=== PATIENT | female | born 1995 | race American Indian/Alaskan Native ===

== ENCOUNTER 2018-04-04 21:11 | Emergency (ER) | payer MEDICAID ==
[2018-04-04 21:11] VITALS: BMI 19.4
[2018-04-04 21:27] VITALS: RESP 18; TEMP 98.3
[2018-04-04] MEDS ORDERED: Albuterol 0.083% Inhal Sol (2.5 mg/3 mL) UD INH STA (22:18)
[2018-04-04] MEDS ORDERED: Albuterol 0.083% Inhal Sol (2.5 mg/3 mL) UD ONE (22:28)
[2018-04-04 23:17] VITALS: O2SAT 97
--- NOTE | 2018-04-04 23:30 | ED PDOC ---
HPI: Chest Pain Time Seen by Provider: 04/04/18 21:52 Chief Complaint (Nursing): Cough, Cold, Congestion Chief Complaint (Provider): Cough, central chest pain with cough History Per: Patient History/Exam Limitations: no limitations Onset/Duration Of Symptoms: Days Current Symptoms Are (Timing): Still Present Additional Complaint(s): 23 yo female with no medical problems presents with cough x 1 week with green phelgm. PT states today she feels tightness and chest pain, central with cough. No CP, no recent travel, no clotting/blood disordered. Past Medical History Reviewed: Historical Data, Nursing Documentation, Vital Signs Vital Signs: Last Vital Signs Temp 98.3 F 04/04/18 21:19 Pulse 88 04/04/18 21:19 Resp 18 04/04/18 21:19 BP 115/75 04/04/18 21:19 Pulse Ox 97 04/04/18 23:32 - Medical History PMH: No Chronic Diseases - Surgical History Surgical History: No Surg Hx - Family History Family History: States: No Known Family Hx - Living Arrangements Living Arrangements: With Family - Home Medications Home Medications: Ambulatory Orders Medication Instructions Recorded Vit No.128/Iron/FA 1 each PO DAILY 01/07/16 [ Vitamin] Cephalexin [Keflex] 500 mg PO TID #15 capsule 12/21/16 Ibuprofen [Motrin] 1 tab PO Q8 PRN #21 tab 12/21/16 Albuterol HFA [Ventolin HFA 90 1 puff IH BID PRN #1 unit 04/04/18 mcg/actuation (8 g)] Azithromycin [Zithromax] 250 mg PO DAILY #6 tab 04/04/18 - Allergies Allergies/Adverse Reactions: Allergies Allergy/AdvReac Type Severity Reaction Status Date / Time No Known Allergies Allergy Verified 01/07/16 00:10 Review of Systems ROS Statement: Except As Marked, All Systems Reviewed And Found Negative Constitutional: Positive for: Malaise. Negative for: Fever, Chills Cardiovascular: Positive for: Chest Pain Respiratory: Positive for: Cough, Shortness of Breath Physical Exam - Reviewed Nursing Documentation Reviewed: Yes Vital Signs Reviewed: Yes - Physical Exam Appears: Positive for: Well, Non-toxic, No Acute Distress Head Exam: Positive for: ATRAUMATIC, NORMAL INSPECTION, NORMOCEPHALIC Skin: Positive for: Normal Color, Warm, DRY Eye Exam: Positive for: Normal appearance ENT: Positive for: Normal ENT Inspection Neck: Positive for: Normal, Painless ROM Cardiovascular/Chest: Positive for: Regular Rate, Rhythm Respiratory: Positive for: Normal Breath Sounds. Negative for: Accessory Muscle Use, Respiratory Distress Back: Positive for: Normal Inspection Extremity: Positive for: Normal ROM Neurologic/Psych: Positive for: Alert, Oriented - ECG O2 Sat by Pulse Oximetry: 97 Medical Decision Making Medical Decision Making: Pt reports feeling better on re-evaluation. Disposition - Clinical Impression Clinical Impression: Cough - Patient ED Disposition Is Patient to be Admitted: No Counseled Patient/Family Regarding: Diagnosis, Need For Followup, Rx Given - Disposition Disposition: Routine/Home Disposition Time: 23:31 Condition: STABLE Prescriptions: Albuterol HFA [Ventolin HFA 90 mcg/actuation (8 g)] 1 puff IH BID PRN #1 unit PRN Reason: shortness of breath Azithromycin [Zithromax] 250 mg PO DAILY #6 tab Instructions: Cough in Adults Forms: [facility] (Bulgarian), [facility] ED School/Work Excuse
[2018-04-04 23:36] VITALS: BP 104/71; PULSE 86
--- NOTE | 2018-04-05 07:13 | CARD ---
APPROVED REPORT EKG Measurement Heart [id number] <Conclusion> Normal sinus rhythm Normal ECG
--- NOTE | 2018-04-05 09:02 | RAD ---
HISTORY: cough, chest pain COMPARISON: Chest radiograph dated 09/22/2011 TECHNIQUE: Chest PA and lateral FINDINGS: LUNGS: No active pulmonary disease. PLEURA: No significant pleural effusion identified. No pneumothorax apparent. CARDIOVASCULAR: Normal. OSSEOUS STRUCTURES: No significant abnormalities. VISUALIZED UPPER ABDOMEN: Normal. OTHER FINDINGS: None. IMPRESSION: No active disease.
== END 2018-04-04 23:37 | disposition home or self-care (01) ==
LOC: H.ER 21:11
DX: R05 Cough (principal)

== ENCOUNTER 2018-06-18 23:30 | Emergency (ER) | payer MEDICAID ==
[2018-06-18 23:30] VITALS: BMI 19.4
[2018-06-18 23:43] VITALS: RESP 16; O2SAT 100
--- NOTE | 2018-06-19 00:23 | ED PDOC ---
HPI: Chest Pain Time Seen by Provider: 06/18/18 23:42 Chief Complaint (Nursing): Chest Pain Chief Complaint (Provider): chest pain History Per: Patient History/Exam Limitations: no limitations Onset/Duration Of Symptoms: Mins (30) Current Symptoms Are (Timing): Still Present Exacerbating Factors: Deep Breathing Additional Complaint(s): 23 y/o female presents for evaluation of midsternal chest pain x 30 mins. Patient states she was watching tv when symptoms began, which are worsened by touch,deep breaths. Denies fever, cough, congestion, shortness of breath, palpitations, leg pain/swelling, recent travel, OCP use, tobacco use. Past Medical History Reviewed: Historical Data, Nursing Documentation, Vital Signs Vital Signs: Last Vital Signs Temp 98.2 F 06/18/18 23:41 Pulse 90 06/18/18 23:41 Resp 16 06/18/18 23:41 BP 116/76 06/18/18 23:41 Pulse Ox 100 06/19/18 02:23 - Medical History PMH: No Chronic Diseases - Surgical History Surgical History: No Surg Hx - Family History Family History: States: No Known Family Hx - Living Arrangements Living Arrangements: With Family - Home Medications Home Medications: Ambulatory Orders Medication Instructions Recorded Vit No.128/Iron/FA 1 each PO DAILY 01/07/16 [ Vitamin] Cephalexin [Keflex] 500 mg PO TID #15 capsule 12/21/16 Ibuprofen [Motrin] 1 tab PO Q8 PRN #21 tab 12/21/16 Albuterol HFA [Ventolin HFA 90 1 puff IH BID PRN #1 unit 04/04/18 mcg/actuation (8 g)] Azithromycin [Zithromax] 250 mg PO DAILY #6 tab 04/04/18 - Allergies Allergies/Adverse Reactions: Allergies Allergy/AdvReac Type Severity Reaction Status Date / Time No Known Allergies Allergy Verified 01/07/16 00:10 Review of Systems ROS Statement: Except As Marked, All Systems Reviewed And Found Negative Cardiovascular: Positive for: Chest Pain Physical Exam - Reviewed Nursing Documentation Reviewed: Yes Vital Signs Reviewed: Yes - Physical Exam Appears: Positive for: Well, Non-toxic, No Acute Distress Head Exam: Positive for: ATRAUMATIC, NORMAL INSPECTION, NORMOCEPHALIC Skin: Positive for: Normal Color Eye Exam: Positive for: Normal appearance ENT: Positive for: Normal ENT Inspection Cardiovascular/Chest: Positive for: Regular Rate, Rhythm. Negative for: Chest Non Tender (tender to palpate upper b/l costochondral joints midsternal area; no ecchymosis, crepitus, edema noted) Respiratory: Positive for: Normal Breath Sounds Gastrointestinal/Abdominal: Positive for: Normal Exam Back: Positive for: Normal Inspection Extremity: Positive for: Normal ROM. Negative for: Calf Tenderness Neurologic/Psych: Positive for: Alert, Oriented (x3) - Laboratory Results Result Diagrams: 06/19/18 00:50 06/19/18 00:50 - ECG ECG: Positive for: Viewed By Me (reviewed by ED attending) ECG Rhythm: Positive for: Sinus Rhythm O2 Sat by Pulse Oximetry: 100 - Radiology X-Ray: Viewed By Me X-Ray Interpretation: No Acute Disease - Progress ED Course And Treament: labs, ekg, chest xray, IV toradol Patient with + test; states her LMP was 05/16/18. States she took a home test 2 weeks ago and it was negative IV toradol changed to PO tylenol 2:35 Patient states pain improved; states she is now able to touch her center of chest without pain. Patient educated on findings, discharged with instructions to follow up PMD 2-3 days Advised Tylenol PRN pain Advised follow up flight attendant/inflight supervisor for care Strict return precautions given, including worsening chest pain, shortness of breath, palpitations, or other concerning symptoms. Disposition - Clinical Impression Clinical Impression: Costochondral chest pain, - Patient ED Disposition Is Patient to be Admitted: No Counseled Patient/Family Regarding: Studies Performed, Diagnosis, Need For Followup - Disposition Disposition: Routine/Home Disposition Time: 02:37 Condition: IMPROVED Instructions: Costochondritis, - The First Month Forms: [employer] (Albanian)
[2018-06-19 01:05] LABS: BASO % 0.5 % (0.0-2.0); EOS % 0.5 % (0.0-4.0); HEMOGLOBIN 12.5 g/dL (12.0-16.0); LYMPH # 1.7 K/uL (1.0-4.3); LYMPH % 34.7 % (20.0-40.0); MEAN CELL VOLUME 90.9 fl (81.0-99.0); MEAN CORPUSCULAR HEMOGLOBIN 30.9 pg (27.0-31.0); MEAN PLATELET VOLUME 9.7 fl (7.2-11.7); MONO # 0.5 K/uL (0.0-0.8); NEUT # 2.6 K/uL (1.8-7.0); NEUT % 53.3 % (50.0-75.0); NRBC % 0.1 % (0.0-0.0); RBC 4.04 Mil/uL (3.80-5.20); RED CELL DISTRIBUTION WIDTH 12.8 % (11.5-14.5); WHITE BLOOD COUNT 4.9 K/uL (4.8-10.8)
[2018-06-19 01:28] LABS: ALB/GLOB RATIO 1.5 (1.0-2.1); ALBUMIN 4.1 g/dL (3.5-5.0); ALT/SGPT 17 U/L (9-52); AST/SGOT 18 U/L (14-36); BLOOD UREA NITROGEN 8 mg/dl (7-17); GFR AFRICAN-AMERICAN > 60; GFR NON-AFRICAN AMERICAN > 60
[2018-06-19 02:56] VITALS: BP 111/69; PULSE 87; TEMP 98.3
--- NOTE | 2018-06-19 07:13 | CARD ---
APPROVED REPORT Date of service: 06/18/2018 <Conclusion> Normal sinus rhythm Normal ECG
--- NOTE | 2018-06-19 08:15 | RAD ---
Date of service: 06/19/2018 HISTORY: chest pain COMPARISON: 04/04/2018 TECHNIQUE: Chest PA and lateral FINDINGS: LUNGS: No active pulmonary disease. PLEURA: No significant pleural effusion identified. No pneumothorax apparent. CARDIOVASCULAR: Normal. OSSEOUS STRUCTURES: No significant abnormalities. VISUALIZED UPPER ABDOMEN: Normal. OTHER FINDINGS: None. IMPRESSION: No active disease. No change perceived.
== END 2018-06-19 02:55 | disposition home or self-care (01) ==
LOC: H.ER 23:30
DX: R07.1 Chest pain on breathing (principal); Z33.1 Pregnant state, incidental

== ENCOUNTER 2018-06-30 23:01 | Emergency (ER) | payer MEDICAID ==
[2018-06-30 23:01] VITALS: BMI 19.4
[2018-06-30 23:10] VITALS: O2SAT 100
--- NOTE | 2018-07-01 00:09 | ED PDOC ---
HPI: Abdomen Time Seen by Provider: 06/30/18 23:15 Chief Complaint (Nursing): Abdominal Pain Chief Complaint (Provider): Abdominal pain History Per: Patient History/Exam Limitations: no limitations Onset/Duration Of Symptoms: Days (2) Current Symptoms Are (Timing): Still Present Location Of Pain/Discomfort: RLQ, LLQ, Suprapubic Quality Of Discomfort: Cramping Additional History Per: Patient Additional Complaint(s): 23yo female, comes to ER for evaluation of lower abdominal pain x 2 days, described as a cramping sesnation. She states prior to arrival, when sitting on the toilet to urinate, she noted blood. She denies any vaginal bleeding after that instance. Patient states she is but has no care, and is unsure of the duration of her ; she reports she has an OBGYN appointment on 07/11. Otherwise, deneis any fever, chills, urinary symptoms, nausea, vomiting, or diarrhea. She also denies any shortness of breath or chest pain. Patient did not take any medications prior to arrival. PMD: Dr. Millard Last Menstral Period: 05/15/18 : 2 Para: 1 (early @ 34 weeks) Past Medical History Reviewed: Historical Data, Nursing Documentation, Vital Signs Vital Signs: Last Vital Signs Temp 98.7 F 06/30/18 23:07 Pulse 90 06/30/18 23:07 Resp 16 06/30/18 23:07 BP 122/78 06/30/18 23:07 Pulse Ox 100 07/01/18 02:51 - Medical History PMH: No Chronic Diseases - Surgical History Surgical History: No Surg Hx - Family History Family History: States: No Known Family Hx - Social History Current smoker - smoking cessation education provided: No Alcohol: None Drugs: Denies - Home Medications Home Medications: Ambulatory Orders Medication Instructions Recorded Vit No.128/Iron/FA 1 each PO DAILY 01/07/16 [ Vitamin] Cephalexin [Keflex] 500 mg PO TID #15 capsule 12/21/16 Ibuprofen [Motrin] 1 tab PO Q8 PRN #21 tab 12/21/16 Albuterol HFA [Ventolin HFA 90 1 puff IH BID PRN #1 unit 04/04/18 mcg/actuation (8 g)] Azithromycin [Zithromax] 250 mg PO DAILY #6 tab 04/04/18 Acetaminophen [Acetaminophen 8 650 mg PO Q8 PRN #21 tablet.er 07/01/18 Hour] - Allergies Allergies/Adverse Reactions: Allergies Allergy/AdvReac Type Severity Reaction Status Date / Time No Known Allergies Allergy Verified 01/07/16 00:10 Review of Systems ROS Statement: Except As Marked, All Systems Reviewed And Found Negative Cardiovascular: Negative for: Chest Pain Respiratory: Negative for: Shortness of Breath Gastrointestinal: Positive for: Abdominal Pain. Negative for: Nausea, Vomiting , Diarrhea Genitourinary Female: Positive for: Vaginal Bleeding. Negative for: Dysuria, Hematuria Physical Exam - Reviewed Nursing Documentation Reviewed: Yes Vital Signs Reviewed: Yes - Physical Exam Comments: GENERAL APPEARANCE: Patient is awake, alert, oriented x 3, in mild painful distress. SKIN: Warm, dry; (-) cyanosis. EYES: (-) conjunctival pallor, (-) scleral icterus. ENMT: Mucous membranes moist. NECK: (-) tenderness, (-) stiffness, (-) lymphadenopathy. CHEST AND RESPIRATORY: (-) rales, (-) rhonchi, (-) wheezes; breath sounds equal bilaterally. HEART AND CARDIOVASCULAR: (-) irregularity; (-) murmur, (-) gallop. ABDOMEN AND GI: (-) distention. Bowel sounds active; (+) suprapubic tenderness. (-) guarding, (-) rebound, (-) palpable masses, (-) CVA tenderness. EXTREMITIES: (-) deformity, (-) edema, (+) distal pulses. NEURO AND PSYCH: Mental status as above; (-) focal findings. - Laboratory Results Result Diagrams: 07/01/18 00:10 07/01/18 00:10 Urine POC: Positive Urine dip results: Positive for: Protein (trace). Negative for: Leukocyte Esterase, Blood, Nitrate, Ketones, Glucose, Bilirubin - ECG O2 Sat by Pulse Oximetry: 100 (RA) Pulse Ox Interpretation: Normal Medical Decision Making Medical Decision Making: Impression: Abdominal pain, vaginal bleeding in 1st trimester Plan: * CBC * BMP * Beta Quant * IV access * Type and Screen * Upreg * Tylenol 650mg PO 00:15 UPreg positive. US OB Transvaginal ordered to confirm IUP. 0030 Udip reviewed. (-) evidence of UTI 0120 CBC and BMP unremarkable. H&H stable. Beta Quant: 8006.30 0143 Patient in Ultrasound 0225 US FINDINGS: Gestation: There is a live intrauterine with estimated gestational age of 7 weeks 1 day based on crown-rump length. Yolk sac is visualized. heart measures 162 beats per minute. Uterus/cervix: Cervical length measures approximately 3.8 cm. Uterus measures 7.7 x 4.4 x 6.1 cm. No myometrial mass. Ovaries: LEFT ovary measures 2.9 x 1.6 x 2.3 cm and contains a corpus luteal cyst. RIGHT ovary measures 2.2 x 1.2 x 2.2 cm. No mass. Free fluid: There is free fluid in the cul-de-sac. IMPRESSION: There is a live intrauterine with estimated gestational age of 7 weeks 1 day based on crown-rump length. 0230 Patient reporting mild vaginal spotting at this time. Patient states she believes she is O- but not entirely sure. Pending type and screen to evaluate need for Rhogam. 0240 Type and Screen: O- Rhogam ordered. 0335 On re-evaluation, patient reports improvement of symptoms. On exam, patient remains AAOx3, in no acute distress. Lungs clear to auscultation, cardiac RRR, abdomen soft, non-tender, repeat neuro exam shows no focal findings. VSS, stable for discharge. Lab/Diagnostic results d/w the patient in great detail. Diagnosis of abdominal pain and vaginal bleeding in first trimester d/w the patient. Based on history, exam and diagnostic results, plan will be for outpatient follow up with OBGYN. Patient instructed to follow-up with pmd / referral provided / the clinic in 1- 2 days without fail. Advised to take medication as prescribed. Return to the emergency room at any time for any new or worsening symptoms. Patient states she fully agrees with and understands discharge instructions. States that she agrees with the plan and disposition. Verbalized and repeated discharge instructions and plan. I have given the patient opportunity to ask any additional questions. Scribe Attestation: Documented by Simran Knowles, acting as a scribe for Tiff Garvin PA-C. Provider Scribe Attestation: All medical record entries made by the Scribe were at my direction and personally dictated by me. I have reviewed the chart and agree that the record accurately reflects my personal performance of the history, physical exam, medical decision making, and the department course for this patient. I have also personally directed, reviewed, and agree with the discharge instructions and disposition. Disposition - Clinical Impression Clinical Impression: Abdominal pain during , Vaginal bleeding affecting early , Need for rhogam due to Rh negative mother - Patient ED Disposition Is Patient to be Admitted: No Counseled Patient/Family Regarding: Studies Performed, Diagnosis, Need For Followup, Rx Given - Disposition Referrals: Sonia Millard MD [Primary Care Provider] - [facility]] Disposition: Routine/Home Disposition Time: 03:36 Condition: STABLE Additional Instructions: The emergency medical care you received today was directed towards the acute presenting symptoms. If you were prescribed any medication, please fill it and give as directed. It may take several days for your symptoms to resolve. Return to the Emergency Department at any time if symptoms worsen, do not improve, or if any other problems arise. Please contact your doctor in 2 days for re-evaluation and follow up / or call one of the physicians/clinics you have been referred to that are listed on the Patient Visit Information form that is included in your discharge packet. Bring any paperwork you were given at discharge with you along with any medications to your follow up visit. Our treatment cannot replace ongoing medical care by a primary care provider (PCP) outside of the emergency department. Prescriptions: Acetaminophen [Acetaminophen 8 Hour] 650 mg PO Q8 PRN #21 tablet.er PRN Reason: Pain, Moderate (4-7) Instructions: Acute Abdomen (Belly Pain), Adult (DC), Bleeding With ( DC), Rho(D) Immune Globulin, - The Second Month Forms: [employer] (Croatian) Print Language: PUERTO RICAN - POA Present On Arrival: None Results - Lab Results Lab Results: 07/01/18 07/01/18 07/01/18 00:10 00:10 00:10 WBC 4.2 L RBC 4.21 Hgb 13.1 Hct 38.0 MCV 90.3 MCH 31.0 MCHC 34.4 RDW 12.7 Plt Count 166 MPV 9.7 Neut % (Auto) 50.3 Lymph % (Auto) 38.1 Cocke % (Auto) 10.8 H Eos % (Auto) 0.3 Baso % (Auto) 0.5 Neut # (Auto) 2.1 Lymph # (Auto) 1.6 Cocke # (Auto) 0.5 Eos # (Auto) 0.0 Baso # (Auto) 0.0 Sodium 139 Potassium 4.0 Chloride 104 Carbon Dioxide 27 Anion Gap 12 BUN 11 Creatinine 0.6 L Est GFR ( Amer) > 60 Est GFR (Non-Af Amer) > 60 Random Glucose 91 Calcium 9.4 Beta HCG, Quant 8006.30 Blood Type O NEGATIVE Antibody Screen Negative BBK History Checked Patient has bt
[2018-07-01 00:34] LABS: BASO % 0.5 % (0.0-2.0); EOS % 0.3 % (0.0-4.0); HEMOGLOBIN 13.1 g/dL (12.0-16.0); LYMPH # 1.6 K/uL (1.0-4.3); LYMPH % 38.1 % (20.0-40.0); MEAN CELL VOLUME 90.3 fl (81.0-99.0); MEAN CORPUSCULAR HGB CONC 34.4 g/dL (33.0-37.0); MEAN PLATELET VOLUME 9.7 fl (7.2-11.7); MONO # 0.5 K/uL (0.0-0.8); MONO % 10.8 % (0.0-10.0); NEUT # 2.1 K/uL (1.8-7.0); NEUT % 50.3 % (50.0-75.0); RBC 4.21 Mil/uL (3.80-5.20); RED CELL DISTRIBUTION WIDTH 12.7 % (11.5-14.5); WHITE BLOOD COUNT 4.2 K/uL (4.8-10.8)
[2018-07-01 00:52] LABS: BLOOD UREA NITROGEN 11 mg/dl (7-17); CALCIUM 9.4 mg/dL (8.4-10.2); GFR AFRICAN-AMERICAN > 60; GFR NON-AFRICAN AMERICAN > 60
[2018-07-01 04:29] VITALS: BP 121/72; PULSE 86; RESP 19; TEMP 98.6
--- NOTE | 2018-07-01 12:20 | US ---
Date of service: 07/01/2018 HISTORY: confirm IUP. The last menstrual period is dated 05/16/2018 suggesting an estimated gestational age of 6 weeks 4 days. COMPARISON: None available. TECHNIQUE: Transvaginal sonography is performed with longitudinal and transverse projections submitted for interpretation. B-mode Doppler technique was utilized as well. FINDINGS: UTERUS: Measures 7.7 x 4.4 x 6.1 cm. The uterus is anteverted without cyst or solid parenchymal mass identified. There is a gestational sac identified with the intracavity with pole and yolk sac identified as well as amniotic membrane. The gestational sac mean diameter is 1.6 cm with mean crown-rump length of the pole measure 1.1 cm. Based on CRL mean, average ultrasonic age is 7 weeks 1 day which is concordant with LMP derived dates. The sac measures 0.4 cm. cardiac activity is recorded at 159 beats per minute. The decidual reaction appears unremarkable. No myometrial pathology is grossly evident. CERVIX: The cervix appears unremarkable and measures 3.8 cm with a closed internal os. RIGHT OVARY: Measures 2.2 x 1.3 x 2.2 cm. No solid mass. Normal flow. LEFT OVARY: Measures 2.9 x 1.6 x 2.3 cm. No solid mass. Normal flow. A few tiny cysts are identified suggestive of follicles. FREE FLUID: No significant free fluid noted. OTHER FINDINGS: None. IMPRESSION: A single, viable intrauterine gestation is identified with average ultrasonic age of 7 weeks 1 day as discussed above. No evidence to suggest chorionic hemorrhage with no suspicious findings appreciated at this time. Clinical follow-up advised ultrasound is available at a latter stage of for anatomical survey if clinically warranted. Concordant preliminary report from [facility], 07/01/2018.
== END 2018-07-01 04:10 | disposition home or self-care (01) ==
LOC: H.ER 23:01
DX: O20.9 Hemorrhage in early pregnancy, unspecified (principal); O26.91 Pregnancy related conditions, unspecified, first trimester; R10.2 Pelvic and perineal pain; Z3A.01 Less than 8 weeks gestation of pregnancy; O36.0910 Maternal care for other rhesus isoimmunization, first trimester, not applicable or unspecified
CPT/HCPCS: 76817; 80048; 81025; 84702; 85025; 86850; 86900; 96372; 99283; J2792

== ENCOUNTER 2018-09-10 23:15 | Emergency (ER) | payer MEDICAID ==
[2018-09-10 23:16] VITALS: BMI 19.4
[2018-09-10 23:54] VITALS: BP 115/62; PULSE 68; RESP 18; TEMP 98; O2SAT 99
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
== END 2018-09-11 03:24 | disposition home or self-care (01) ==
LOC: H.ER 23:15
DX: S09.90XA Unspecified injury of head, initial encounter (principal); S00.83XA Contusion of other part of head, initial encounter; Y04.0XXA Assault by unarmed brawl or fight, initial encounter; Y92.89 Other specified places as the place of occurrence of the external cause

== ENCOUNTER 2019-01-16 14:25 | Emergency (ER) | payer MEDICAID ==
[2019-01-16 14:26] VITALS: BMI 19.4
[2019-01-16 14:48] VITALS: O2SAT 100
--- NOTE | 2019-01-16 15:23 | ED PDOC ---
HPI: General Adult Time Seen by Provider: 01/16/19 15:21 Chief Complaint (Nursing): GI Problem Chief Complaint (Provider): cough/uri/fever/bodyache x 4 days History Per: Family (24 y/o female here with cough/uri/fever/bodyache x 4 days worse yesterday. Works with children. No vomiting/diarrhea.) Past Medical History Reviewed: Historical Data, Nursing Documentation, Vital Signs Vital Signs: Last Vital Signs Temp 97.5 F L 01/16/19 14:46 Pulse 74 01/16/19 14:46 Resp 18 01/16/19 14:46 BP 132/84 01/16/19 14:46 Pulse Ox 100 01/16/19 14:46 - Family History Family History: States: Unknown Family Hx - Home Medications Home Medications: Ambulatory Orders Medication Instructions Recorded Vit No.128/Iron/FA 1 each PO DAILY 01/07/16 [ Vitamin] Cephalexin [Keflex] 500 mg PO TID #15 capsule 12/21/16 Ibuprofen [Motrin] 1 tab PO Q8 PRN #21 tab 12/21/16 Albuterol HFA [Ventolin HFA 90 1 puff IH BID PRN #1 unit 04/04/18 mcg/actuation (8 g)] Azithromycin [Zithromax] 250 mg PO DAILY #6 tab 04/04/18 Acetaminophen [Acetaminophen 8 650 mg PO Q8 PRN #21 tablet.er 07/01/18 Hour] Oseltamivir Cap [Tamiflu] 75 mg PO BID #10 cap 01/16/19 Promethazine/Codeine 5 ml PO Q12 PRN #100 ml 01/16/19 [Codeine/Promethazine 10 MG/5 Ml-6.25 MG/5 Ml] - Allergies Allergies/Adverse Reactions: Allergies Allergy/AdvReac Type Severity Reaction Status Date / Time No Known Allergies Allergy Verified 01/16/19 14:45 Review of Systems ROS Statement: Except As Marked, All Systems Reviewed And Found Negative Constitutional: Positive for: Fever Respiratory: Positive for: Cough Physical Exam - Reviewed Nursing Documentation Reviewed: Yes Vital Signs Reviewed: Yes - Physical Exam Appears: Positive for: Well, Non-toxic, No Acute Distress Head Exam: Positive for: ATRAUMATIC, NORMAL INSPECTION, NORMOCEPHALIC Skin: Positive for: Normal Color, Warm, DRY Eye Exam: Positive for: EOMI, Normal appearance, PERRL ENT: Positive for: Normal ENT Inspection Neck: Positive for: Normal, Painless ROM Cardiovascular/Chest: Positive for: Regular Rate, Rhythm Respiratory: Positive for: CNT, Normal Breath Sounds Gastrointestinal/Abdominal: Positive for: Normal Exam, Soft Back: Positive for: Normal Inspection Extremity: Positive for: Normal ROM Neurological/Psych: Positive for: Awake, Alert, Normal Tone - ECG O2 Sat by Pulse Oximetry: 100 - Progress ED Course And Treament: influenza a/b neg rapid strep neg Disposition - Clinical Impression Clinical Impression: Flu-like symptoms - Patient ED Disposition Is Patient to be Admitted: No - Disposition Disposition: Routine/Home Disposition Time: 16:59 Condition: FAIR Prescriptions: Oseltamivir Cap [Tamiflu] 75 mg PO BID #10 cap Promethazine/Codeine [Codeine/Promethazine 10 MG/5 Ml-6.25 MG/5 Ml] 5 ml PO Q12 PRN #100 ml PRN Reason: Cough Instructions: Flu Forms: [facility] ED School/Work Excuse
[2019-01-16 16:23] LABS: SQUAMOUS EPITHIAL 5 /hpf (0-5); URINE BACTERIA RARE (<OCC); URINE BILIRUBIN NEGATIVE (NEGATIVE); URINE BLOOD NEGATIVE (NEGATIVE); URINE CLARITY CLEAR (Clear); URINE COLOR YELLOW (YELLOW); URINE GLUCOSE (UA) NEG (NEGATIVE); URINE LEUKOCYTE ESTERASE NEG Leu/uL (Negative); URINE PROTEIN NEGATIVE (NEGATIVE)
[2019-01-16 17:17] VITALS: BP 129/84; PULSE 66; RESP 15; TEMP 98.3
== END 2019-01-16 17:16 | disposition home or self-care (01) ==
LOC: H.ER 14:25
DX: J11.1 Influenza due to unidentified influenza virus with other respiratory manifestations (principal)

== ENCOUNTER 2019-03-11 15:37 | Emergency (ER) | payer MEDICAID ==
[2019-03-11 15:37] VITALS: BMI 19.4
[2019-03-11] MEDS ORDERED: Tdap Vaccine 0.5 ml Vial (10-64 yrs) IM ONE (16:41)
--- NOTE | 2019-03-11 16:50 | ED PDOC ---
Lower Extremity Pain/Injury Time Seen by Provider: 03/11/19 16:25 Chief Complaint (Nursing): Lower Extremity Problem/Injury Chief Complaint (Provider): Right foot pain History Per: Patient History/Exam Limitations: no limitations Onset/Duration Of Symptoms: Days Current Symptoms Are (Timing): Still Present Additional History Per: Patient Additional Complaint(s): 24yo female, otherwise well, comes to ER reporting right foot pain. She states she stepped on an unknown object while at home 1 week ago and since then has been having increasing pain on her foot. Today she reports severe foot pain, and states no relief with motrin. She also reports mild swelling to the side of her forefoot and the 5th toe. No complaints of fever, chills. Patient states she attempted to take out the object with a tweezer but was unsuccessful. No additional complaints. Patient states tetanus vaccine not up to date. Past Medical History Reviewed: Historical Data, Nursing Documentation, Vital Signs Vital Signs: Last Vital Signs Temp 98.3 F 03/11/19 15:43 Pulse 99 H 03/11/19 15:43 Resp 16 03/11/19 15:43 BP 109/68 03/11/19 15:43 Pulse Ox 98 03/11/19 15:43 Primary Care Provider: Sonia Millard - Medical History PMH: No Chronic Diseases - Surgical History Surgical History: No Surg Hx - Family History Family History: States: No Known Family Hx - Social History Current smoker - smoking cessation education provided: No Alcohol: None Drugs: Denies - Home Medications Home Medications: Ambulatory Orders Medication Instructions Recorded Vit No.128/Iron/FA 1 each PO DAILY 01/07/16 [ Vitamin] Cephalexin [Keflex] 500 mg PO TID #15 capsule 12/21/16 Ibuprofen [Motrin] 1 tab PO Q8 PRN #21 tab 12/21/16 Albuterol HFA [Ventolin HFA 90 1 puff IH BID PRN #1 unit 04/04/18 mcg/actuation (8 g)] Azithromycin [Zithromax] 250 mg PO DAILY #6 tab 04/04/18 Acetaminophen [Acetaminophen 8 650 mg PO Q8 PRN #21 tablet.er 07/01/18 Hour] Oseltamivir Cap [Tamiflu] 75 mg PO BID #10 cap 01/16/19 Promethazine/Codeine 5 ml PO Q12 PRN #100 ml 01/16/19 [Codeine/Promethazine 10 MG/5 Ml-6.25 MG/5 Ml] Cephalexin [cephalexin] 500 mg PO BID #14 cap 03/11/19 - Allergies Allergies/Adverse Reactions: Allergies Allergy/AdvReac Type Severity Reaction Status Date / Time No Known Allergies Allergy Verified 03/11/19 15:41 Review of Systems ROS Statement: Except As Marked, All Systems Reviewed And Found Negative Constitutional: Negative for: Fever, Chills Musculoskeletal: Positive for: Foot Pain (right) Physical Exam - Reviewed Nursing Documentation Reviewed: Yes Vital Signs Reviewed: Yes - Physical Exam Appears: Positive for: Non-toxic, Uncomfortable (mild painful distress) Head Exam: Positive for: NORMOCEPHALIC Skin: Positive for: Normal Color Eye Exam: Positive for: Normal appearance Cardiovascular/Chest: Positive for: Regular Rate, Rhythm Respiratory: Negative for: Respiratory Distress Pulses-Dorsalis Pedis (R): 2+ Pulses-Post. Tibialis (R): 2+ Extremity: Positive for: Normal ROM (FROM of right foot), Other (there is a pinpoint dark, palpable foreign body on right foot just below the epidermis on the plantar aspect of the forefoot, right at the head of the 5th metatarsal. (+) tenderness, subtle edema and subtle erythema). Negative for: Deformity Neurological/Psych: Positive for: Awake, Alert, Normal Tone - ECG O2 Sat by Pulse Oximetry: 98 (RA) Pulse Ox Interpretation: Normal Medical Decision Making Medical Decision Making: Impression: Foreign body in foot Plan: -- Udip -- XR Right foot -- Tetanus vaccine 1640 Case discussed with podiatry resident, who will evaluate patient at bedside. 0 Evaluated by Podiatry who performed minor procedure to remove foreign body. Advised antibiotics and f/u podiatry clinic next week. ScribeAttestation: Documented bySimran Knowles, acting as a scribe for Alejandra De Leon MD. Provider ScribeAttestation: All medical record entries made by the Scribe were at my direction and personally dictated by me. I have reviewed the chart and agree that the record accurately reflects my personal performance of the history, physical exam, medical decision making, and the department course for this patient. I have also personally directed, reviewed, and agree with the discharge instructions and disposition. Disposition - Clinical Impression Clinical Impression: Foreign body in foot - Disposition Referrals: Podiatry Clinic [Outside] (FOLLOWUP AT PODIATRY CLINIC [facility] BY [facility] [address] (CALL TOMORROW TO SCHEDULE APPOINTMENT.)) Disposition: Routine/Home Disposition Time: 18:26 Condition: STABLE Prescriptions: Cephalexin [cephalexin] 500 mg PO BID #14 cap Instructions: Foreign Body in Skin (DC), Removal of Foreign Body in Skin Forms: [facility] ED School/Work Excuse
[2019-03-11] MEDS ORDERED: Lidocaine 1% Inj (20ml) IJ ONE (17:51)
[2019-03-11] MEDS ORDERED: Lidocaine Hydrochloride 1% 10 ML ONE (18:02)
[2019-03-11] MEDS ORDERED: Povidone Iodine Topical 10% Sol ONE (18:02)
--- NOTE | 2019-03-11 18:03 | RAD ---
PROCEDURE: Right foot radiographs. Three views. HISTORY: foreign body plantar head 5th mts COMPARISON: None available. FINDINGS: BONES: No acute displaced fracture. JOINTS: No dislocation. SOFT TISSUES: Soft tissue swelling. No evidence of radiopaque foreign body. OTHER FINDINGS: None. IMPRESSION: Soft tissue swelling. No evidence of radiopaque foreign body. No acute displaced fracture or dislocation identified. If symptoms persist or if there is continued clinical concern, x-ray follow-up in 7-10 days should be considered.
--- NOTE | 2019-03-11 18:38 | CP.PCM.CON ---
History of Present Illness - History of Present Illness History of Present Illness: Podiatry Consult note for Dr. Rees, 24 y/o female patient was seen and evaluated at bedside. Patient states she stepped on unknown object about 1 week ago. Patient states the pain has progressively worsened. Patient complains of minimal numbness to the area and unable to bear weight to the foot. Patient reports taking Motrin for pain withno relief. No complaints of fever, chills, nausea, vomiting, shortness of breath or chest pain. Tetanus not up to date PMHX: denied by patient PSHX: denied by patient Allergies: none Review of Systems - Review of Systems All systems: reviewed and no additional remarkable complaints except Review of Systems: As per HPI Past Patient History - Past Social History Alcohol: None Drugs: Denies - PSYCHIATRIC Hx Substance Use: No - SURGICAL HISTORY Hx Surgeries: No - ANESTHESIA Hx Anesthesia: No Meds Home Medications: Home Medication List Medication Instructions Recorded Confirmed Type Cephalexin [cephalexin] 500 mg PO BID #14 cap 03/11/19 Rx Allergies/Adverse Reactions: Allergies Allergy/AdvReac Type Severity Reaction Status Date / Time No Known Allergies Allergy Verified 03/11/19 15:41 Physical Exam - Constitutional Appears: Well, Non-toxic, No Acute Distress - Head Exam Head Exam: ATRAUMATIC, NORMOCEPHALIC - Extremities Exam Additional comments: Right Lower Extremity Exam VASC: DP and PT 2/4 bilaterally, CFT less than 3 seconds X 10, no edema, no erythema, TG normal NEURO: grossly intact DERM: pinpoint dark, palpable foreign body on right foot just below the epidermis on the plantar aspect of the forefoot at the head of the 5th metatarsal, (+) tenderness, no open lesions, no erythema, no ecchymosis, no drainage, no malodor, no other signs of infection - Neurological Exam Neurological exam: Alert, Oriented x3 - Psychiatric Exam Psychiatric exam: Normal Affect, Normal Mood Results - Vital Signs Recent Vital Signs: Last Vital Signs Temp 98.3 F 03/11/19 15:43 Pulse 99 H 03/11/19 15:43 Resp 16 03/11/19 15:43 BP 109/68 03/11/19 15:43 Pulse Ox 98 03/11/19 18:27 Assessment & Plan - Assessment and Plan (Free Text) Assessment: 24 y/o female patient seen and evaluated for foreign body to right foot Plan: Patient seen and evaluated Plan discussed with Dr. Rees Ordered Right Foot X-rays: soft tissue swelling, no evidence of radiopaque foreign body, no acute displaced fracture or dislocation Patient advised attempt can be made to remove foreign body at bedside, patient agreeable to procedure Patient administered 8 cc of 1% Lidocaine plain locally to submetatarsal 5 head With a sterile #15 blade, the site of the foreign body was debrided as the foreign body was superficial, no incisions were made The object was noted to be removed via debridement, the area was copiously flushed with saline and betadine mix Site was dressed with bacitracin, gauze and Kerlix Patient was provided with a surgical shoe to weight bear to the heel Patient to keep dressing clean dry and intact for 2 days after which she can remove dressing and apply antibiotic and bandaid Patient to return to ED if any signs of infection noted Patient to follow up in Podiatry clinic Rx for Keflex 500 BID given to patient - Date & Time Date: 03/13/19 Time: 09:15
[2019-03-11 18:43] VITALS: PULSE 77; RESP 18; TEMP 98
[2019-03-11 18:44] VITALS: BP 107/72
[2019-03-12 19:47] VITALS: O2SAT 98
== END 2019-03-11 18:42 | disposition home or self-care (01) ==
LOC: H.ER 15:37
DX: M79.5 Residual foreign body in soft tissue (principal); S90.859A Superficial foreign body, unspecified foot, initial encounter; Z23 Encounter for immunization